=== PATIENT | female | born 1960 | race Caucasian/White ===

== ENCOUNTER 2017-04-16 15:40 | Inpatient (IN) | payer OTHER, MEDICAID ==
[2017-04-16] MEDS ORDERED: NS 1,000 ML IV ONE ×2 (16:25→16:52)
[2017-04-16 16:35] LABS: ANION GAP 26 mEq/L (8-16); CALCIUM 5.3 mg/dL (8.5-10.4); CARBON DIOXIDE 14 mEq/l (22-31); CHLORIDE 93 mEq/L (97-110); GLOMERULAR FILTRATION RATE 5; GLUCOSE 111 mg/dL (70-100); POTASSIUM 3.8 mEq/L (3.5-5.2); SODIUM 133 mEq/L (134-144)
[2017-04-16 16:43] LABS: % IMMATURE GRANULYOCYTES 0.7 % (0.0-1.1); ABSOLUTE IMMATURE GRANULOCYTES 0.07 10^3/uL (0.00-0.10); ADD DIFF? NO; ADD MORPH? NO; ADD SCAN? NO; ATYPICAL LYMPHOCYTE FLAG 0 (0-99); FRAGMENT RBC FLAG 0 (0-99); HEMATOCRIT 31.1 % (38.0-47.0); HEMOGLOBIN 10.2 g/dL (12.6-16.3); LEFT SHIFT FLG 10 (0-99); LIPEMIA HEMOLYSIS FLAG 80 (0-99); MEAN CELL HEMOGLOBIN 31.2 pg (27.9-34.1); MEAN CELL HEMOGLOBIN CONCENTR. 32.8 g/dL (32.4-36.7); MEAN CELL VOLUME 95.1 fL (81.5-99.8); MEAN PLATELET VOLUME 10.1 fL (8.7-11.7); PLATELET CLUMPS FLAG 0 (0-99); PLATELET COUNT 258 10^3/uL (150-400); RED BLOOD CELL COUNT 3.27 10^6/uL (4.18-5.33)
[2017-04-16 16:48] LABS: TROPONIN I < 0.012 ng/mL (0-0.034)
--- NOTE | 2017-04-16 16:48 | EDPHY ---
H & P Stated Complaint: First time seizure Source: Patient, Family, EMS Exam Limitations: Clinical condition - Personal History Current Tetanus Diphtheria and Acellular Pertussis (TDAP): Yes - Medical/Surgical History Hx Asthma: Yes Hx Chronic Respiratory Disease: No Hx Diabetes: Yes Hx Cardiac Disease: No Hx Renal Disease: Yes Hx Cirrhosis: No Hx Alcoholism: No Hx HIV/AIDS: No Hx Splenectomy or Spleen Trauma: No Other PMH: Medical: Crohns disease, Addisons, Diabetes type II, appy/choly/ asthma/bowel resection/l kidney problems, hc C2 fracture, sleep apnea, HTN, hypotension, asthma, back issues, kidney stones, appendectomy,Rt eye blindness, eye infections, - Social History Smoking Status: Current every day smoker Time Seen by Provider: 04/16/17 16:04 HPI/ROS: CHIEF COMPLAINT: syncope versus seizure HISTORY OF PRESENT ILLNESS: 56-year-old female with multiple medical problems presents emergency department by EMS after her daughter reports she had a seizure today at home. Patient reports she took her normal dose of pain medications which is 200 mg of morphine and 60 mg of OxyContin, 40 minutes later the patient reports she was feeling lightheaded and dizzy and felt like she was going to pass out. She went in lie down in bed. Her daughter then witnessed seizure-like activity for 1-2 minutes, reports she woke up confused. Patient presents the emergency department awake, alert and oriented, she is agitated. Patient reports feeling dehydrated and states she thinks she passed out due to dehydration. Patient reports she has been battling with dehydration all summer. She has Crohn's and has had chronic diarrhea and reports she has not been able to drink enough water. She denies chest pain. She reports feeling short of breath the last couple days. Patient denies any new medications, patient reports she stopped taking her daily prednisone 2 days ago. Her last dose was 30 mg. She denies any other medication changes. REVIEW OF SYSTEMS: A comprehensive 10 point review of systems is otherwise negative aside from elements mentioned in the history of present illness. (Lorelei Baker) Constitutional: Initial Vital Signs Temperature (C) 37.2 C 04/16/17 15:45 Heart Rate 75 04/16/17 15:45 Respiratory Rate 20 04/16/17 15:45 Blood Pressure 86/51 L 04/16/17 15:45 O2 Sat (%) 90 L 04/16/17 15:45 O2 Delivery Mode Room Air Allergies/Adverse Reactions: infliximab [From Remicade] Allergy (Severe, Verified 02/27/14 15:00) TROUBLE BREATHING/CHEST PAIN methotrexate [Methotrexate] Allergy (Unknown, Verified 02/27/14 15:00) azathioprine [From Imuran] Allergy (Verified 02/27/14 15:00) NAUSEA,DIARRHEA azathioprine sodium [From Imuran] Allergy (Verified 02/27/14 15:00) NAUSEA/DIARRHEA Home Medications: Medication Instructions Recorded Aspirin [Aspirin 325 mg (OTC)] 325 mg PO DAILY 05/07/12 Morphine Sulfate [Morphine Sulfate 200 mg PO BID 05/07/12 ER] Metoprolol Succinate Xr [Toprol Xl 50 mg PO DAILY 02/27/14 50 mg (*)] [place]-3 Ethyl Est-Lovaza [Lovaza 1 2 gm PO BID 02/27/14 gm (*)] Amitriptyline HCl 75 mg PO HS 12/05/16 Atorvastatin Calcium [Lipitor 20 20 mg PO DAILY 12/05/16 mg (*)] Budesonide/Formoterol 160/4.5 1 puffs IH BID 12/05/16 [Symbicort 160-4.5 Mcg Inh (*)] Diazepam [Valium 10 MG (*)] 10 mg PO TID PRN 12/05/16 Furosemide [Lasix 40 MG (*)] 40 mg PO DAILY 12/05/16 Levothyroxine [Synthroid 100 mcg 100 mcg PO DAILY06 12/05/16 (*)] Lisinopril [Zestril 10 mg (*)] 10 mg PO DAILY 12/05/16 Mirtazapine 30 mg PO HS 12/05/16 ALPRAZolam [Xanax 0.5 MG (*)] 0.5 mg PO BID PRN 04/16/17 Albuterol [Proventil Inhaler HFA 1 - 2 puffs IH PRN PRN 04/16/17 (*)] Budesonide [Entocort EC] 9 mg PO HS 04/16/17 DULoxetine [Cymbalta 60 MG (*)] 60 mg PO DAILY 04/16/17 Gabapentin [Neurontin] 600 mg PO TID 04/16/17 Pantoprazole Sodium [Protonix 40mg 40 mg PO DAILY 04/16/17 (*)] Promethazine HCl [Phenergan 25mg 25 mg PO Q6 PRN 04/16/17 (*)] Spironolactone [Aldactone 25 MG 25 mg PO HS 04/16/17 (*)] metFORMIN HCL [Glucophage 500 mg 1,000 mg PO HS 04/16/17 (*)] oxyCODONE IR [Oxycodone Ir (*)] 30 mg PO Q4 PRN 04/16/17 predniSONE [predniSONE TAPER] 1 each PO AD 04/16/17 Medical Decision Making ED Course/Re-evaluation: IV established by EMS. Patient with a blood pressure of 80s over 60s on arrival , she was reports feeling tired and has no other complaints. She denies dizziness, lightheadedness. Patient is awake, alert and oriented. 2nd IV established. CBC, chemistry panel, EKG, troponin and chest x-ray have been ordered. Chemistry panel shows a creatinine of 9.0 with a BUN of 50. Calcium is 5.3. 1 L of normal saline has been infused, 2nd L has been ordered. Patient is refusing a CT scan of her brain, she states she is sure it she did not have a seizure and just passed out from taking her pain medications after being so dehydrated. Daughter is at bedside trying to convince her to agree with plan. EKG shows sinus rhythm, rate 69, left axis deviation T-wave inversion in lead 3 , T-wave flattening in AVF. 1715-Pt had a witnessed seizure while in xray. Post ictal on return to room and combative. My supervising physician Dr. Beltran has seen and evaluated this patient. He agrees with plan for admission. Pt is given 1mg of iv ativan. Pt will go to SDU. I have spoken with Dr. Harris who accepts this admission. 1730-Patient come continues hypotensive with blood pressure over 102/68, heart rate is 82. 2nd L of fluid infusing. (Lorelei Baker) Critical Care Time: Critical care time spent by me, Dr. Beltran exclusive with this patient was 30 minutes, exclusive of the PA time exclusive of procedures. The organ system that was at risk was renal and neurologic and I gave IV fluids, consultation and admission to prevent worsening of the patient's condition (Moises Beltran) - Data Points Laboratory Results: Laboratory Results 04/16/17 15:45 04/16/17 15:45 Medications Given: Discontinued Medications Dextrose (Dextrose 50% Syringe) 25 gm IVP ONCE ONE Stop: 04/16/17 23:01 Last Admin: 04/16/17 23:24 Dose: 25 gm Gabapentin (Neurontin) 600 mg PO TID [facility] Stop: 10/13/17 23:29 Last Admin: 04/17/17 08:07 Dose: 600 mg Heparin Sodium (Porcine) (Heparin Sc Injection) 5,000 unit SC Q8 [facility] Stop: 10/13/17 21:59 Last Admin: 04/17/17 05:22 Dose: 5,000 unit Sodium Chloride (Ns) 1,000 mls @ 0 mls/hr IV ONCE ONE; Wide Open PRN Reason: Protocol Stop: 04/16/17 16:26 Last Admin: 04/16/17 16:35 Dose: 1,000 mls Sodium Chloride (Ns) 1,000 mls @ 0 mls/hr IV ONCE ONE PRN Reason: Wide Open Stop: 04/16/17 16:53 Last Admin: 04/16/17 16:30 Dose: 1,000 mls Sodium Chloride (Ns) 1,000 mls @ 125 mls/hr IV CONT [facility] Stop: 10/13/17 18:14 Last Admin: 04/17/17 07:23 Dose: 1,000 mls Calcium Gluconate 2 gm/ Sodium (Chloride) 70 mls @ 140 mls/hr IV ONCE ONE Stop: 04/16/17 19:35 Last Admin: 04/16/17 19:45 Dose: 70 mls Magnesium Sulfate (Magnesium Sulf 2 Gm (Premix)) 50 mls @ 50 mls/hr IV ONCE ONE Stop: 04/16/17 21:23 Last Admin: 04/16/17 20:25 Dose: 50 mls Calcium Gluconate 2 gm/ Sodium (Chloride) 70 mls @ 140 mls/hr IV ONCE ONE Stop: 04/16/17 22:27 Last Admin: 04/16/17 22:15 Dose: 70 mls Levofloxacin/Dextrose (Levaquin 750 Mg (Premix)) 150 mls @ 100 mls/hr IV ONCE ONE PRN Reason: Protocol Stop: 04/17/17 00:04 Last Admin: 04/17/17 00:17 Dose: 150 mls Metronidazole/Sodium Chloride (Flagyl 500 Mg (Premix)) 100 mls @ 100 mls/hr IV ONCE ONE PRN Reason: Protocol Stop: 04/16/17 23:35 Last Admin: 04/16/17 23:27 Dose: 100 mls Calcium Gluconate (Calcium Gluconate 1 Gm (Premix)) 50 mls @ 100 mls/hr IV ONCE ONE Stop: 04/16/17 23:29 Last Admin: 04/17/17 00:18 Dose: 50 mls Magnesium Sulfate/Dextrose (Magnesium Sulf 1 Gm (Premix)) 100 mls @ 100 mls/hr IV ONCE ONE Stop: 04/16/17 23:59 Last Admin: 04/17/17 00:18 Dose: 100 mls Sodium Bicarbonate 150 meq/ (Dextrose) 1,150 mls @ 150 mls/hr IV ONCE ONE Stop: 04/17/17 06:39 Last Admin: 04/16/17 23:21 Dose: 1,150 mls Magnesium Sulfate/Dextrose (Magnesium Sulf 1 Gm (Premix)) 100 mls @ 100 mls/hr IV ONCE ONE Stop: 04/16/17 23:45 Last Admin: 04/17/17 00:19 Dose: Not Given Calcium Gluconate 2 gm/ (Dextrose) 60 mls @ 120 mls/hr IV ONCE ONE Stop: 04/17/17 06:59 Last Admin: 04/17/17 07:23 Dose: 60 mls Magnesium Sulfate (Magnesium Sulf 2 Gm (Premix)) 50 mls @ 50 mls/hr IV ONCE ONE Stop: 04/17/17 07:29 Last Admin: 04/17/17 06:42 Dose: 50 mls Magnesium Sulfate/Dextrose (Magnesium Sulf 1 Gm (Premix)) 100 mls @ 100 mls/hr IV ONCE ONE Stop: 04/17/17 09:08 Last Admin: 04/17/17 08:40 Dose: 100 mls Lorazepam (Ativan Injection) 1 mg IVP ONCE ONE Stop: 04/16/17 17:21 Last Admin: 04/16/17 18:58 Dose: Not Given Methylprednisolone Sodium Succinate (Solu-Medrol) 20 mg IVP Q12 [facility] Stop: 10/13/17 20:59 Last Admin: 04/16/17 22:42 Dose: Not Given Morphine Sulfate (Ms Contin/Oramorph) 200 mg PO BID [facility] Stop: 04/26/17 22:59 Last Admin: 04/17/17 08:07 Dose: 200 mg Departure - Departure Disposition: [facility] Inpatient Acute Clinical Impression: BONG (acute kidney injury), Hypocalcemia, Seizure Condition: Critical
--- NOTE | 2017-04-16 16:53 | CPEKG ---
Heart Rate: 69 RR Interval: 870 P-R Interval: 196 QRSD Interval: 98 QT Interval: 448 QTC Interval: 480 P [place]: 45 QRS [place]: -21 T Wave [place]: -8 EKG Severity - ABNORMAL ECG - EKG Impression: SINUS RHYTHM EKG Impression: BORDERLINE LEFT AXIS DEVIATION EKG Impression: BORDERLINE T ABNORMALITIES, DIFFUSE LEADS Electronically Signed By: Fernandez Salamanca 18-Apr-2017 14:27:58
[2017-04-16] MEDS ORDERED: LORazepam 2 MG/ML INJ IVP ONE (17:20)
[2017-04-16] MEDS ORDERED: LORazepam 2 MG/ML INJ IVP PRN (18:09)
[2017-04-16] MEDS ORDERED: PROTOCOL CALCIUM 1 DOSE IV PRN (18:10)
--- NOTE | 2017-04-16 18:34 | GHP ---
[f rep st] HISTORY AND PHYSICAL DATE OF ADMISSION: 04/16/2017 CHIEF COMPLAINT: Suspected seizure. HISTORY OF PRESENT ILLNESS: This is a 56-year-old female with a history of Crohn disease, chronic narcotic use, hypertension, hypothyroidism, diabetes, and solitary kidney, who was brought to the Emergency Department by EMS after her daughter witnessed a seizure. The patient was diagnosed with Crohn's flare by her PCP on Sunday and has since been on prednisone. Her daughter works as an EMT at [employer]. Upon returning from work today, the patient states that she felt really dehydrated and has been having diarrhea and vomiting due to her Crohn disease. Over the past few days, her daughter has not been around much but does not think her mom has been eating or drinking very much. She has no previous history of seizure. She has not been complaining of any chest pain or shortness of breath. During the time of my exam, the patient is unarousable after she had a witnessed seizure while having a CT scan. PAST MEDICAL HISTORY: 1. Crohn disease. 2. Hiatal hernia. 3. Sleep apnea. 4. Hypertension. 5. Hypothyroidism. 6. Type 2 diabetes. 7. Asthma. 8. Sawyer disease. 9. Nonfunctioning left kidney. 10. Kidney stones. 11. Blind in the right eye. PAST SURGICAL HISTORY: 1. Cholecystectomy. 2. Bowel resection. 3. Colostomy with takedown. 4. D and C x3. 5. Multiple abdominal surgeries. HOME MEDICATIONS: Reviewed, refer to [facility] for details. ALLERGIES: Remicade, methotrexate, Imuran. SOCIAL HISTORY: She smokes. She denies any alcohol use. She lives with her daughter. FAMILY HISTORY: Unobtainable. REVIEW OF SYSTEMS: A comprehensive 10-point review of systems was attempted but was unobtainable since the patient was unresponsive during the time of my exam. PHYSICAL EXAMINATION: VITAL SIGNS: Blood pressure 88/58, pulse of 82, respiratory rate 26, O2 saturation 98% on 2 L, temperature afebrile. GENERAL: Ill appearing. HEAD: Normocephalic, atraumatic. EYES: PERRLA. Sclerae anicteric. MOUTH: Dry oral mucosa. NECK: Supple. No lymphadenopathy. CARDIOVASCULAR: S1, S2. No JVD. Trace lower extremity edema. PULMONARY: Diminished breath sounds bilateral bases. No wheezes, rales, or rhonchi. ABDOMEN: Soft, nontender, nondistended. No guarding or rebound tenderness. Normoactive bowel sounds. EXTREMITIES: No clubbing or cyanosis. NEURO: The patient does not follow commands. She is not moving any of her extremities. SKIN: There are multiple small scabs over her legs. DIAGNOSTICS: WBC is 9.7, hemoglobin 10.2, hematocrit 31.1, platelets 258. Sodium 133, potassium 3.8, chloride 93, CO2 of 14, BUN 51, creatinine 9, glucose 111, calcium 5.3. Troponin less than 0.012. EKG, which I visualized and personally interpreted, sinus rhythm, rate 69 beats per minute, no acute ischemic changes. ASSESSMENT AND PLAN: This is a 56-year-old female presenting after a seizure, found to have: 1. Acute kidney injury with history of nonfunctioning left kidney. Most likely prerenal; however, the diagnosis is broad at this point. Plan: The patient will be admitted to telemetry, where we will repeat a chemistry panel in 4 hours. Will order a renal ultrasound. Will also consult Nephrology. Will start IV hydration now and obtain urine electrolytes as well. Currently, the patient does not have indication for acute dialysis; however, this may change, which I did discuss with the patient's daughter. 2. Hypocalcemia, which possibly could be contributing to her seizure. Plan: Will replace calcium and monitor. Send PTH and ionized Ca++ 3. Crohn disease with reported active flare. Plan: Will continue steroids for now and consider GI consultation as indicated. Consider noncontrast CT of the abdomen and empiric antibiotics if fever develops. 4. History of chronic opioid use. Plan: Continue opioids as indicated. 5. History of Xanax and Valium use, which could also possibly be contributing to her seizure if she has not been taking these medications, which I was unable to obtain this history during the time of my exam. Plan: Will continue with benzodiazepines as needed for seizures. The patient is a full code status, per her daughter's request. /[id number]/MODL MTDD
[2017-04-16] MEDS ORDERED: CALCIUM GLUCONATE 2 GM in NS 50 ML IV ONE ×2 (19:06→21:58)
[2017-04-16] MEDS ORDERED: ALTEPLASE 2 MG VIAL IVP PRN (19:28)
--- NOTE | 2017-04-16 19:32 | SOAPPROG ---
SOAP Progress Note Assessment/Plan: Assessment: Please see dictation # [id number] BONG on CKD3- baseline Cr ~ 1.1 as of 10/10, essentially solitary kidney. Looks very dry/hypotensive now and getting aggressive IVF now. Getting renal u/s and guerrero as obstruction possible. Placing central line and pressors to improve hemodynamics. Checking CK, urine studies. Getting blood gas now- may need CRRT if not improving, refractory acidosis. Hypotension- chronic steroids use, recent severe GI losses from Crohns,and meds (narcotics/benzos). Checking blood Cx, lactate now. Giving IV Hydrocortisone. Central line and pressors if needed. Hypocalcemia- checking iCA, pTH and phos now. Giving Ca replacment now and recheck labs. Seizure- ?electrolyte related. For Head CT and neuro eval. Low bicarb- suspect met acidosis from BONG, diarrhea, metformin. Getting blood gas now and may need bicarb replacement in IVF vs CRRT. Crohns' with recent flare- recent prednisone burst DM2- on metformin- holding I discussed with DISABILITY CASE MANAGER and Dr. Harris and pt's daughter Cherelle Joseph MD [facility] [phone] pager [phone] pager/24 hr line Objective: Vital Signs Temp Pulse Resp BP Pulse Ox 37.2 C 82 26 H 88/58 L 98 04/16/17 15:45 04/16/17 17:29 04/16/17 17:23 04/16/17 17:29 04/16/17 17:29 Laboratory Results 04/16/17 18:45 04/16/17 18:45 04/15/17 04/16/17 04/17/17 05:59 05:59 05:59 Intake Total 1500 Balance 1500 Physical Exam - Physical Exam General Appearance: obtunded ICD10 Worksheet Patient Problems: Problems Problem Status Onset BONG (acute kidney injury) Acute - ICD10 Problem Qualifiers (1) BONG (acute kidney injury)
[2017-04-16 19:48] LABS: ALANINE AMINOTRANSFERASE 27 IU/L (9-52); ALBUMIN 2.3 g/dL (3.5-5.0); ALKALINE PHOSPHATASE 58 IU/L (38-126); ANION GAP 15 mEq/L (8-16); ASPARTATE AMINOTRANSFERASE 18 IU/L (14-46); BILIRUBIN,TOTAL 0.6 mg/dL (0.1-1.4); C-REACTIVE PROTEIN 20.6 mg/L (<10.0); CALCIUM 4.1 mg/dL (8.5-10.4); CARBON DIOXIDE 17 mEq/l (22-31); CHLORIDE 101 mEq/L (97-110); GLOMERULAR FILTRATION RATE 6; GLUCOSE 64 mg/dL (70-100); POTASSIUM 3.4 mEq/L (3.5-5.2); SODIUM 133 mEq/L (134-144)
[2017-04-16 19:56] LABS: PTH INTACT NO MINERALS 250.5 pg/ml (10.8-79.4)
[2017-04-16 20:09] LABS: PTH INTACT NO MINERALS 155.2 pg/ml (10.8-79.4)
[2017-04-16 20:11] LABS: CREATININE 7.6 mg/dL (0.6-1.0)
[2017-04-16 20:13] LABS: MAGNESIUM 0.6 mg/dL (1.6-2.3)
[2017-04-16] MEDS ORDERED: MAGNESIUM SULF 2 GM/WATER 50 ML IV ONE (20:24)
[2017-04-16] MEDS ORDERED: ALBUTEROL 60 PUFFS/8 GM MDI IH PRN (20:25)
[2017-04-16] MEDS ORDERED: ALPRAZolam 0.5 MG TAB PO PRN (20:25)
[2017-04-16 20:31] LABS: CK-MB INTERPRETATION NEGATIVE (NEGATIVE)
[2017-04-16] MEDS ORDERED: MAGNESIUM SULF 2 GM/WATER 50 ML BAG IV ONE (20:32)
[2017-04-16] MEDS ORDERED: ALBUTEROL 200 PUFFS/18 GM MDI IH PRN (20:34)
[2017-04-16 20:54] LABS: CREATINE KINASE-MB FRACTION 9.24 ng/mL (0-3.19)
[2017-04-16] MEDS ORDERED: methylPREDNISolone SOD SUCC 40 MG/ML VIAL IVP SCH (21:00)
[2017-04-16] MEDS: NS 1,000 ML IV SCH (21:27)
[2017-04-16] MEDS: NOREPINEPHRINE/NS 500 ML IV SCH (21:30)
--- NOTE | 2017-04-16 21:30 | GCON ---
[f rep st] CONSULTATION NEPHROLOGY CONSULTATION DATE OF CONSULTATION: 04/16/2017 REFERRING PHYSICIAN: Leandro Harris DO REASON FOR CONSULTATION: Acute kidney injury. HISTORY OF PRESENT ILLNESS: The patient is a 56-year-old woman, with a history of diabetes, Crohn d isease, hypertension, obstructive sleep apnea, and chronic pain syndrome, who was brought in by para medics after she had a witnessed seizure by her daughter at home. The patient has had increasing sy mptoms of her Crohn's lately with increasing diarrhea, nausea and poor oral intake. She saw [facility] on Sunday and was started on a prednisone burst. The patient's daughter gave mo st of the history, as the patient is too confused to answer any questions. Her daughter works as an EMT. She says that the patient was complaining of feeling really dehydrated today and dizzy and th en had a grand mal seizure in front of her. She had a subsequent seizure here on arrival to the [facility] and thus her head CT was not able to be completed as the seizure occurred during this period. Her daughter thinks that she has not been eating and drinking very much over the last several days due to the increased diarrhea. She does not have any known seizure disorder. She does have a histo ry of essentially a solitary kidney as she had a severe obstruction on the left side from a prior ki dney stone that unfortunately developed a severe ureteral injury at the time of surgical interventio n. The patient's daughter thinks that her left kidney is essentially nonfunctioning at this point. Reviewing labs in the system, it appears that her baseline creatinine is around 1.1, based on labs i n September. Her creatinine has ranged anywhere from 0.9 to 1.2 over the past several years. Of note , the patient also was noted to have a low calcium at 5.3 and ionized calcium is pending. She is re ceiving some IV calcium gluconate currently. She is hypotensive with blood pressures in the 70s ove r 30s. Currently she is on her third liter of IV normal saline. The patient's daughter tells me th at she took her narcotics doses before paramedics arrived and has been somnolent since then, even be fore she was given the low-dose of Ativan in the emergency room. Neurology is due to see her. She has not had any fevers. She has been protecting her airway and is saturating in the 90s on room air . She has not made any urine since arrival and a Winslow catheter and renal ultrasound are pending. REVIEW OF SYSTEMS: Unable to obtain from the patient as she is too somnolent. Discussing with her daughter: GENERAL: She has had no fevers. She has had generalized malaise, poor oral intake, and some weakness. HEENT: Denies any sore throat. PULMONARY: She has not been complaining of any ginger rtness of breath. She does wear oxygen at night for her sleep apnea, but does not wear it during day. CARDIAC: No chest pain or lower extremity edema. GASTROINTESTINAL: She has had increased diarrhea, nonbloody. Some nausea and some chronic abdominal pain. No vomiting. GENITOURINARY: No pura that her urine has been a little bit darker, but no hematuria or flank pain. SKIN: She has chr onic excoriations on her legs and her daughter reports she is itching related to whenever she is on prednisone. ENDOCRINE: She does have a history of diabetes. No recent low blood sugars. HEMATOLO GIC: No witnessed bleeding. NEUROLOGICAL: She did have a seizure at home and again on arrival to the emergency room. PAST MEDICAL HISTORY: 1. Crohn disease. She is currently on a prednisone taper. She has not tolerated several medicatio ns in the past, including Remicade and Humira. 2. Type 2 diabetes on metformin. 3. Essentially solitary kidney as she had an injury to her left kidney after a severe kidney stone. 4. Mild chronic kidney disease with a baseline serum creatinine approximately 1.1. 5. Hypertension. 6. Obstructive sleep apnea, not using CPAP. She does use nocturnal oxygen. 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 8. History of remote left nephrolithiasis, unknown stone type. 9. Right eye blindness. 10. Asthma. 11. Status post cholecystectomy. 12. Status post exploratory laparotomy with bowel resection, multiple times. She did have a colost richard with takedown, thought related to her Crohn disease. 13. Status post D and C. SOCIAL HISTORY: She has been living with her daughter in good spirits lately, per her daughter, reina ng otherwise well other than the increased diarrhea. She does smoke approximately half a pack a day . No alcohol or drugs. FAMILY HISTORY: Her daughter reports that the patient's parents may have had some mild chronic kidn ey disease, but nobody was on dialysis that she is aware of. PHYSICAL EXAMINATION: VITAL SIGNS: Her blood pressure was 73/40. Heart rate 82, saturating 98% on 2 L of oxygen. GENERAL: She is somnolent, not answering questions. Reacts to painful stimuli and sternal rub. Protecting her airway. HEENT: Her mucous membranes appear dry. NECK: Supple. ROSEANN ST: Lungs are clear to auscultation but poor effort, given her mental state. CARDIOVASCULAR: Regu lar rate and rhythm. No rub. ABDOMEN: Soft. Normal bowel sounds. She has multiple abdominal sca rs that are well healed. EXTREMITIES: No edema. She has multiple excoriations that appear consist ent with chronic scratching. No obvious cellulitis. NEUROLOGICAL: Again, very somnolent. Not ans wering questions or following commands. Does react to painful stimuli. LABORATORY DATA: Include sodium 133, potassium 3.8, chloride 93, bicarbonate 14, BUN 51, creatinine 9.0, glucose 111, calcium 5.3. Troponin less than 0.12. White blood cell count 9.1, hemoglobin 10 .2, hematocrit 31.2, platelets 258. ASSESSMENT AND PLAN: The patient is a 56-year-old woman with a history of Crohn's, diabetes, hypert ension, essentially solitary kidney, who now presents with hypotension, witnessed seizure, acute kid bety injury, hypocalcemia, and metabolic acidosis. 1. Acute kidney injury on top of chronic kidney disease. Her baseline serum creatinine appears to be approximately 1.1, which gives her chronic kidney disease stage 3. This in the setting of a mare tary functioning kidney from prior injury as well as long-standing diabetes and hypertension. She a ppears extremely dehydrated on exam and I agree with aggressive IV fluids. I am also getting a val l ultrasound to exclude obstruction, given the essential solitary kidney. We are also placing a christian tral line and starting her on pressors to improve her hemodynamics. I have labs pending to see what her blood gas shows. At this point, there are not any acute indications for dialysis, but I did ex plain to her daughter that she may require it very soon if we do not see any improvement with these measures, especially if her acidosis proves refractory. We are also placing a Winslow catheter and if we can get some urine, we will send some essential studies. I think the most important thing candis sandhu is to hydrate, improve her blood pressure, and exclude obstruction with an ultrasound. 2. Hypotension. It is unclear the etiology. She does not appear to have a fever or elevated white count. 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 She is getting aggressive IV fluids. We are placing a central line and starting pressors. We will send blood cultures. It may also be related to medications that yumiko torres took earlier, including the narcotics and the Ativan. 3. Seizure. This may be electrolyte related with the severe hypocalcemia. We have an ionized calc ium pending. She has a head CT pending. Neurology is due to see her. She has not been loaded with Dilantin and I will defer to Neurology if this is indicated. 4. Severe hypocalcemia. The etiology is not clear at this time. We have an ionized calcium pendin g. I am also checking a phosphorus and a CK and a PTH level. We are replacing with IV calcium now. Monitoring her on telemetry. We will replete as necessary. 5. Low serum bicarbonate. I suspect this is likely metabolic acidosis in the setting of acute kidn ey injury, chronic diarrhea that has been worse lately as well as metformin use. We may need to swi tch her IV fluids over to bicarbonate versus initiate dialysis if this proves refractory. Thank you very much for this consultation. I have discussed my recommendations with the ICU team. We will continue to follow closely. I have repeat labs pending. I will also be in touch with bobbi bland once these are back. Please call me with any questions. /[id number]/MODL
[2017-04-16 21:31] LABS: IONIZED CALCIUM 0.68 MMOL/L (1.12-1.30)
[2017-04-16 21:32] LABS: PCO2 VENOUS 48 mmHg (40-44); PO2 VENOUS 78 mmHg (35-40); TCO2 VENOUS 19 mEq/L (23-27); VEN MEASURED OXYGEN SATURATION 90 % (65-75)
[2017-04-16 21:40] LABS: ANION GAP 15 mEq/L (8-16); CARBON DIOXIDE 15 mEq/l (22-31); CHLORIDE 103 mEq/L (97-110); CREATININE 7.2 mg/dL (0.6-1.0); GLOMERULAR FILTRATION RATE 6; GLUCOSE 66 mg/dL (70-100); MAGNESIUM 1.7 mg/dL (1.6-2.3); POTASSIUM 3.6 mEq/L (3.5-5.2); SODIUM 133 mEq/L (134-144)
[2017-04-16 21:41] LABS: IONIZED CALCIUM 0.77 MMOL/L (1.12-1.30)
[2017-04-16] MEDS: HEPARIN 5,000 UNIT/0.5 ML SYR SC SCH (21:43)
[2017-04-16 21:44] LABS: CALCIUM 4.9 mg/dL (8.5-10.4)
[2017-04-16] MEDS: HYDROCORTISONE 100 MG/2 ML VIAL IVP SCH (21:44)
[2017-04-16] MEDS ORDERED: PROTOCOL MAGNESIUM 1 DOSE IV PRN (21:59)
[2017-04-16 22:01] LABS: ALBUMIN 2.2 g/dL (3.5-5.0); ANION GAP 11 mEq/L (8-16); CARBON DIOXIDE 16 mEq/l (22-31); CHLORIDE 103 mEq/L (97-110); CREATININE 7.2 mg/dL (0.6-1.0); GLOMERULAR FILTRATION RATE 6; GLUCOSE 66 mg/dL (70-100); POTASSIUM 3.6 mEq/L (3.5-5.2); SODIUM 130 mEq/L (134-144)
--- NOTE | 2017-04-16 22:34 | HOSPPROG ---
Hospitalist Progress Note Assessment/Plan: critical care note since being transferred to the ICU the patients condition has continued to worsen with hypotension despite 4L of IV NS Picc line ordered Started on pressors A/shock suspect hypovolemia without evidence for infection P/send procalcitonin will defer abx for now if bp improving blood cultures 45 minutes of critical care time spent with patient Objective: Vital Signs Temp Pulse Resp BP Pulse Ox 37.2 C 82 26 H 88/58 L 98 04/16/17 15:45 04/16/17 17:29 04/16/17 17:23 04/16/17 17:29 04/16/17 17:29 Laboratory Results 04/16/17 18:45 04/16/17 21:15 04/15/17 04/16/17 04/17/17 05:59 05:59 05:59 Intake Total 1500 Balance 1500 ICD10 Worksheet Patient Problems: Problems Problem Status Onset BONG (acute kidney injury) Acute
[2017-04-16] MEDS ORDERED: MAGNESIUM SULF 1 GM/DEXTROSE 100 ML BAG IV ONE (22:44)
[2017-04-16] MEDS ORDERED: MAGNESIUM SULF 1 GM/DEXTROSE 100 ML IV ONE ×2 (22:46→23:00)
[2017-04-16] MEDS ORDERED: D50W 25 GM/50 ML SYR IVP ONE (23:00)
[2017-04-16] MEDS ORDERED: CALCIUM GLUCONATE 50 ML IV ONE (23:00)
[2017-04-16] MEDS ORDERED: PROMETHAZINE HCL 25 MG TAB PO PRN (23:00)
[2017-04-16] MEDS ORDERED: SODIUM BICARBONATE 150 MEQ in D5W 1,000 ML IV ONE (23:00)
[2017-04-16] MEDS: BUDESONIDE/FORMOTEROL 160/4.5 60 PUFFS/MDI IH SCH (23:00)
[2017-04-16] MEDS ORDERED: oxyCODONE IR 15 MG TAB PO PRN (23:06)
[2017-04-16] MEDS: BUDESONIDE 3 MG EC CAP PO SCH (23:12)
[2017-04-16] MEDS: GABAPENTIN 300 MG CAP PO SCH (23:43)
[2017-04-16] MEDS: MIRTAZAPINE 30 MG TAB PO SCH (23:43)
[2017-04-16] MEDS: LEVOTHYROXINE 100 MCG TAB PO SCH (23:44)
[2017-04-16] MEDS: PANTOPRAZOLE SODIUM 40 MG TAB PO SCH (23:44)
[2017-04-16] MEDS: DULoxetine 60 MG CAP PO SCH (23:44)
[2017-04-16] MEDS: AMITRIPTYLINE HCL 25 MG TAB PO SCH (23:44)
[2017-04-16] MEDS: morphINE SR 100 MG TAB PO SCH (23:44)
[2017-04-16] MEDS: ATORVASTATIN CALCIUM 20 MG TAB PO SCH (23:44)
[2017-04-17 02:20] LABS: COLOR YELLOW; LEUKOCYTE ESTERASE,URINE TRACE (NEGATIVE); NITRITE,URINE NEGATIVE (NEGATIVE)
[2017-04-17 02:26] LABS: MUCUS TRACE /lpf (NONE-1+)
[2017-04-17] MEDS: HYDROCORTISONE 100 MG/2 ML VIAL IVP SCH ×3 (05:22→21:53)
[2017-04-17] MEDS: HEPARIN 5,000 UNIT/0.5 ML SYR SC SCH ×2 (05:22→13:44)
[2017-04-17 05:28] LABS: PCO2 VENOUS 46 mmHg (40-44); PH VENOUS BLOOD 7.28 (7.31-7.42); PO2 VENOUS 69 mmHg (35-40); TCO2 VENOUS 22 mEq/L (23-27); VEN MEASURED OXYGEN SATURATION 91 % (65-75)
[2017-04-17 05:29] LABS: IONIZED CALCIUM 0.84 MMOL/L (1.12-1.30)
[2017-04-17 05:34] LABS: % IMMATURE GRANULYOCYTES 0.5 % (0.0-1.1); ABSOLUTE IMMATURE GRANULOCYTES 0.03 10^3/uL (0.00-0.10); ADD DIFF? NO; ADD MORPH? NO; ADD SCAN? NO; ATYPICAL LYMPHOCYTE FLAG 0 (0-99); FRAGMENT RBC FLAG 0 (0-99); HEMATOCRIT 25.9 % (38.0-47.0); HEMOGLOBIN 8.7 g/dL (12.6-16.3); LEFT SHIFT FLG 20 (0-99); LIPEMIA HEMOLYSIS FLAG 80 (0-99); MEAN CELL HEMOGLOBIN 31.1 pg (27.9-34.1); MEAN CELL HEMOGLOBIN CONCENTR. 33.6 g/dL (32.4-36.7); MEAN CELL VOLUME 92.5 fL (81.5-99.8); MEAN PLATELET VOLUME 9.9 fL (8.7-11.7); PLATELET CLUMPS FLAG 30 (0-99); PLATELET COUNT 186 10^3/uL (150-400); RED CELL DISTRIBUTION WIDTH 15.4 % (11.5-15.2)
[2017-04-17 05:55] LABS: ALBUMIN 2.4 g/dL (3.5-5.0); ANION GAP 11 mEq/L (8-16); CARBON DIOXIDE 21 mEq/l (22-31); CHLORIDE 100 mEq/L (97-110); CREATININE 5.6 mg/dL (0.6-1.0); GLOMERULAR FILTRATION RATE 8; GLUCOSE 227 mg/dL (70-100); MAGNESIUM 1.5 mg/dL (1.6-2.3); POTASSIUM 3.6 mEq/L (3.5-5.2); SODIUM 132 mEq/L (134-144)
[2017-04-17] MEDS ORDERED: LEVOTHYROXINE 100 MCG TAB PO SCH (06:00)
[2017-04-17] MEDS ORDERED: MAGNESIUM SULF 2 GM/WATER 50 ML IV ONE (06:30)
[2017-04-17] MEDS ORDERED: CALCIUM GLUCONATE 2 GM in D5W 50 ML IV ONE (06:30)
[2017-04-17] MEDS: NS 1,000 ML IV SCH (07:23)
[2017-04-17] MEDS: DULoxetine 60 MG CAP PO SCH (08:07)
[2017-04-17] MEDS: ATORVASTATIN CALCIUM 20 MG TAB PO SCH (08:07)
[2017-04-17] MEDS: PANTOPRAZOLE SODIUM 40 MG TAB PO SCH (08:07)
[2017-04-17] MEDS: morphINE SR 100 MG TAB PO SCH ×2 (08:07→19:44)
[2017-04-17] MEDS: GABAPENTIN 300 MG CAP PO SCH ×2 (08:07→19:43)
[2017-04-17] MEDS ORDERED: MAGNESIUM SULF 1 GM/DEXTROSE 100 ML IV ONE (08:09)
[2017-04-17] MEDS ORDERED: NON-FORMULARY NEW DRUG (Gabapentin [Neurontin] 600 MG) PO SCH (09:00)
[2017-04-17] MEDS ORDERED: GABAPENTIN 300 MG CAP PO SCH (09:00)
[2017-04-17] MEDS: BUDESONIDE/FORMOTEROL 160/4.5 60 PUFFS/MDI IH SCH ×2 (10:51→20:56)
--- NOTE | 2017-04-17 11:06 | PDCONSULT ---
Technical Sales Engineer Note: HOSPITAL NEUROLOGY CONSULT REQUESTING: Leandro Harris DO REASON: seizure HPI: This is a 56 year old right-handed woman with a history of Crohn disease, CKD, solitary functioning kidney (left one damaged from severe nephrolithiasis), DM2 , HTN, KASSANDRA, chronic benzodiazepine use, chronic narcotic use, iatrogenic Sawyer disease, right eye blindness who presented to our ED yesterday with a seizure. Patient was at her daughter's house. She was feeling lightheaded and overall not feeling well. She felt dehydrated and was having increasing diarrhea and nausea. She went outside to smoke a cigarette. She was then witnessed to have a generalized convulsion. She was post-ictally confused. She was brought to our ED. IN the ED, a CT head was going to be performed and she had another brief generalized convulsion with post-ictal confusion. She was given lorazepam. Screening labs indicated severe BONG with a Cr of 9 (her baseline Cr is reported as 1.1). She was also found to be severely hypocalcemic (Ca 5.3) and hypomagnesemic (Mg 0.6). She was started on IVF with electrolyte repletion. She require pressors due to hypotension as well. Overnight she has returned to baseline. No prior history of seizures. She denies missing doses of narcotics. She states she take alprazolam once daily to once every other day and has never had problems with withdrawal. ROS: As per the HPI, otherwise a complete 12 point ROS was performed and is negative ALLERGIES AND MEDS: As recorded in the EMR - reviewed and reconciled PFSH: As per the intake H&P by Dr. Harris from yesterday EXAM: VS reviewed in EMR GEN: WDWN sitting in NAD HEENT: NCAT, sclera anicteric, conjunctiva not injected, MMM, oropharynx clear, no tongue laceration, no scalp tenderness NECK: supple, nontender, no meningismus CV: RRR s1 s2 wo m/r/c/g. Carotid pulses 2+ wo bruit NEURO: MS: awake, alert, oriented to all spheres. Speech nondysarthric. No language disturbance. Follows commands. Attends to both sides. Recent/remote memory grossly intact. Mood euthymic. Good fund of knowledge. CN: pupils 4mm round - OS reactive, OD sluggish. Fundi with sharp discs. VFF OS, hand wave OD. Primary gaze centered. Full ocular motility. Facial sensation preserved. Face symmetric. Hearing grossly intact to finger rub. Palatoglossal movements intact. Shoulder shrug and head turn strong. MOTOR: normal bulk/tone. Full power throughout. Asterixis with wrists extended and feet dorsiflexed. SENSORY: intact LT/PP throughout and symmetric. No extinction. COORD: no ataxia FN/HS. Hafsa preserved. REFLEX: plantars down. No clonus. DTRS 2/4. GAIT: deferred to PT safety eval DATA REVIEW: Labs reviewed in EMR PERSONALLY INTERPRETED RESULTS AND DATA: None IMPRESSION AND RECOMMENDATIONS: // SEIZURE // BONG // HYPOCALCEMIA // HYPOMAGNESEMIA // HYPOTENSION // POLYPHARMACY Patient with 2 seizures in the setting of multiple severe metabolic disturbances. Her exam is notable mainly for asterixis, which indicates systemic metabolic disturbance resulting in negative myoclonus. I suspect her seizures were provoked in the setting of severe BONG/dehydration, severe hypomagnesemia and severe hypocalcemia. I would not start antiseizure drug at this time. Cont with seizure precautions. Use lorazepam 1-2mg PRN seizures lasting longer than 3 mins. Metabolic investigation and optimization per primary team and consulting services (nephrology). She is going to continue on her home narcotics and benzos. She should have her polypharmacy addressed as an outpatient, as she is on multiple potent psychoactive medications which can lower seizure threshold, or result in withdrawal seizure (I don't think this is currently culprit, but it is an opportunity to streamline her medications and provide a safer regimen). Will sign off. Please recall PRN.
--- NOTE | 2017-04-17 11:48 | HOSPPROG ---
Hospitalist Progress Note Assessment/Plan: New onset seizure likely secondary to electrolyte disturbances including hypocalcemia and hypomagnesemia - Neurology consult appreciated, no anti- epileptics recommended. -prn ativan for recurrent seizure -replace electrolytes, follow -head CT pending Hypocalcemia in setting of acute renal failure - likely cause of seizure. Improving with replacement -check Vit D -cont calc, mag replacement BONG on CKD - Secondary to volume depletion in setting of crohn's flare, GI losses and poor oral intake. Baseline Cr 1.1, in setting of solitary functioning kidney. Has not required dialysis, Cr trending down with hydration. -cont IVF's Hypotension - Due to hypovolemia as above -cont IVF's -wean pressors Crohn's flare - on IV hydrocortisone now, was on predisone taper as outpt, down to 40 mg daily. -cont IV hydrocortisone for now -likely change to oral prednisone tomorrow Addisons due to chronic steroid use - on stress dose steroids as above Chronic opiate and bzd dependence - high risk doses noted. -reduce morphine dose given poor renal function and likely accumulating, increasing her risk of respiratory suppression Peripheral neuropathy - reduce gabapentin dose due to poor renal clearance / BONG Full code Dispo - cont inpt/ICU Subjective: Pt feels better. She is more awake, but eyes close and she drifts off easily. Denies abdominal pain or diarrhea. No fevers. UOP improving. Objective: Vital Signs Temp Pulse Resp BP Pulse Ox 36.8 C 83 10 L 122/82 H 97 04/17/17 08:00 04/17/17 11:12 04/17/17 11:12 04/17/17 11:12 04/17/17 11:12 Laboratory Results 04/17/17 05:15 04/17/17 05:15 04/16/17 04/17/17 04/18/17 05:59 05:59 05:59 Intake Total 4276 151 Output Total 1340 575 Balance 2936 -424 - Physical Exam Constitutional: no apparent distress Eyes: PERRL Ears, Nose, Mouth, Throat: moist mucous membranes Cardiovascular: regular rate and rhythym Respiratory: no respiratory distress, clear to auscultation Gastrointestinal: normoactive bowel sounds, soft, non-tender abdomen Skin: warm Musculoskeletal: full muscle strength Neurologic: AAOx3 ICD10 Worksheet Patient Problems: Problems Problem Status Onset BONG (acute kidney injury) Acute Hypocalcemia Acute Seizure Acute
[2017-04-17] MEDS ORDERED: NS 1,000 ML IV SCH (14:30)
[2017-04-17] MEDS: NOREPINEPHRINE/NS 500 ML IV SCH (15:00)
--- NOTE | 2017-04-17 15:12 | SOAPPROG ---
SOAP Progress Note Assessment/Plan: Assessment: 1. arf: prerenal/atn from vol depletion + hypotension. Resolving rapidly with good uo. Cont ivf for now until off pressors. 2. HypoCa: likely due to arf+hyperphos, pth is appropriately elevated. HypoMag likely contributing, check vit D levels to see if these could also be contributing. Improved, cont to replace prn but would expect to improve with resolution of arf. 3. Hypotension: improved with volume but remains on pressors. Cont ivf as above. 4. Met acidosis: essentially resolved. 5. HypoMag: improving s/p supplementation, can contribute hypoCa via decreased pth sensitivity. Plan: 04/17/17 15:08 Subjective: Remains on low-dose pressors. Ms improved, has been up to BR per daughter. Objective: Vital Signs Temp Pulse Resp BP Pulse Ox 37.0 C 81 15 115/73 94 04/17/17 12:15 04/17/17 14:00 04/17/17 14:00 04/17/17 14:00 04/17/17 14:00 Laboratory Results 04/17/17 05:15 04/17/17 05:15 04/16/17 04/17/17 04/18/17 05:59 05:59 05:59 Intake Total 4276 151 Output Total 1340 575 Balance 2936 -424 Physical Exam - Physical Exam General Appearance: other (chronically-ill appearing) Respiratory: lungs clear (anteriorly) Cardiac/Chest: regular rate, rhythm Abdomen: soft Extremities: pedal edema (none) ICD10 Worksheet Patient Problems: Problems Problem Status Onset BONG (acute kidney injury) Acute
[2017-04-17 16:11] LABS: ANION GAP 9 mEq/L (8-16); CARBON DIOXIDE 25 mEq/l (22-31); CHLORIDE 101 mEq/L (97-110); CREATININE 3.8 mg/dL (0.6-1.0); GLOMERULAR FILTRATION RATE 12; GLUCOSE 305 mg/dL (70-100); POTASSIUM 3.5 mEq/L (3.5-5.2); SODIUM 135 mEq/L (134-144)
[2017-04-17] MEDS ORDERED: D50W 25 GM/50 ML SYR IVP PRN (16:38)
[2017-04-17] MEDS: INSULIN LISPRO 100 UNIT/ML SC SCH ×2 (17:14→21:53)
[2017-04-17] MEDS: AMITRIPTYLINE HCL 25 MG TAB PO SCH (19:43)
[2017-04-17] MEDS: BUDESONIDE 3 MG EC CAP PO SCH (19:43)
[2017-04-17] MEDS: LEVOTHYROXINE 100 MCG TAB PO SCH (19:44)
[2017-04-17] MEDS: MIRTAZAPINE 30 MG TAB PO SCH (19:44)
[2017-04-17] MEDS ORDERED: MIRTAZAPINE 30 MG TAB PO SCH (21:00)
[2017-04-17] MEDS ORDERED: AMITRIPTYLINE HCL 75 MG PO SCH (21:00)
[2017-04-17] MEDS ORDERED: AMITRIPTYLINE HCL 25 MG TAB PO SCH (21:00)
--- NOTE | 2017-04-17 21:14 | GCON ---
[f rep st] CONSULTATION DATE OF CONSULTATION: 04/17/2017 REASON FOR CONSULTATION: Seizures. HISTORY: The patient is a pleasant 56-year-old with multiple medical problems, as outlined below. She was brought to the emergency room following a witnessed seizure by her daughter. She had anothe r seizure in the emergency room. CT head was not accomplished there. She was dehydrated with multi ple electrolyte abnormalities. This was felt to be the etiology for her seizures. She has been see n by Neurology. No anti-seizure medications are felt to be indicated. She has not had a subsequent seizure. She does have a solitary kidney. Her baseline creatinine is 1.1. She came in with a sig nificantly elevated creatinine, again probably secondary to volume depletion. Creatinine was 7.6 on admission with a BUN of 48. She has been seen by Renal, and they recommended judicious rehydration and appropriate electrolyte replacement. Dialysis was not recommended initially. They will contin ue to follow the patient. PAST MEDICAL HISTORY: Remarkable for Crohn disease, hypertension, type 2 diabetes, Sawyer disease, asthma, a nonfunctioning left kidney and kidney stones, right eye blindness, sleep apnea, and chron ic pain and narcotic use. PAST SURGICAL HISTORY: Cholecystectomy, partial bowel resection with temporary colostomy. and lapar otomies. HOME MEDICATIONS: Extensive and included p.r.n. Xanax, Synthroid, p.r.n. Valium, Aldactone, Symbico rt b.i.d., prednisone (which was being tapered), pantoprazole, p.r.n. Phenergan, OxyIR, extended-rel ease morphine, metoprolol, metformin, lisinopril, Neurontin, albuterol, furosemide, Cymbalta, Entoco rt court cream, Lipitor, aspirin, and amitriptyline. DRUG ALLERGIES: Methotrexate, azathioprine, and infliximab. SOCIAL HISTORY: The patient lives in her own home. She has a supportive family. There is a histor y of ongoing tobacco abuse. Significant alcohol is denied. FAMILY HISTORY: Noncontributory. REVIEW OF SYSTEMS: She denies heart disease and congestive heart failure. There is a history of fl uid retention. PHYSICAL EXAMINATION: GENERAL: A pleasant woman who is lying comfortably in bed. Oxygen is in alistair ce at 2 L. She is awake, alert, and communicative. VITAL SIGNS: Blood pressure is approximately 1 30/70, heart rate 70 with sinus rhythm on the monitor. On 2 L, saturations are 95%. Respiratory ra te is 14. CVP is 7. HEENT: Unremarkable for lymphadenopathy or thyromegaly. No jugular venous di stention. Mucous membranes are moist. CHEST: Clear bilaterally. Breath sounds are diminished at the bases. HEART: Regular in rate and rhythm. A soft systolic murmur is present. No gallops. AB DOMEN: Overweight, soft, and nontender. Bowel sounds are present. EXTREMITIES: There is trace to plus edema. NEUROLOGIC: Intact. DATABASE: CT scan of the head is now available. No acute abnormalities were identified. LABORATORY: Sodium is 133, CO2 15. BUN is 45 with a creatinine of 7.2. Calcium is 4.9, with an io nized calcium of 0.77. Magnesium is 1.7. AST and ALT are within normal limits. Urinalysis on admi ssion is unremarkable. ASSESSMENT: 1. Seizures. The patient apparently had a generalized seizure secondary to profound metabolic abno rmalities associated with dehydration. Calcium was especially low. She was on replacement protocol s initially. She has had no further seizure activity, and mental status appears to be returning tow ayush normal. No anti-seizure medications are felt to be indicated. Electrolytes are being followed closely and replaced. 2. Volume depletion with electrolyte abnormalities. The exact etiology for the severity of these d erangements is unclear. Closer followup as an outpatient will be needed. 3. Acute renal insufficiency. She does have only 1 functioning kidney. BUN and creatinine are sig nificantly elevated but are coming down. She is making urine. She has been seen by Renal. There a re no indications currently for dialysis. 4. Hypotension: Resolving. Sepsis seems unlikely. Volume depletion is the most likely. Hypotens ion has resolved with appropriate fluid replacement. 5. History of multiple medical problems and medications as outlined above. PLAN AND RECOMMENDATIONS: The patient will be kept in the intensive care unit. Laboratory and elec trolytes will be followed closely. They will next be obtained in the a.m. She will be kept in the intensive care unit. Entocort will be continued. Her usual inhaled medications will be continued. Hydrocortisone is being given for stress steroid coverage in the event that steroid withdrawal may be associated with her hypotension. Her usual medications will otherwise be continued. Appropriate pain control will be maintained. All the above was discussed with the patient. TIME SPENT: 40 minutes of critical care time was spent directly with the patient. /[id number]/MODL
[2017-04-17 21:58] LABS: PH VENOUS BLOOD 7.18 (7.31-7.42)
[2017-04-18] MEDS: HEPARIN 5,000 UNIT/0.5 ML SYR SC SCH ×3 (00:16→23:42)
[2017-04-18] MEDS: HYDROCORTISONE 100 MG/2 ML VIAL IVP SCH ×3 (06:11→20:43)
[2017-04-18 06:32] LABS: % IMMATURE GRANULYOCYTES 1.7 % (0.0-1.1); ADD DIFF? NO; ADD MORPH? NO; ADD SCAN? NO; ATYPICAL LYMPHOCYTE FLAG 0 (0-99); FRAGMENT RBC FLAG 0 (0-99); HEMATOCRIT 24.5 % (38.0-47.0); HEMOGLOBIN 8.2 g/dL (12.6-16.3); LEFT SHIFT FLG 10 (0-99); LIPEMIA HEMOLYSIS FLAG 80 (0-99); MEAN CELL HEMOGLOBIN 31.2 pg (27.9-34.1); MEAN CELL HEMOGLOBIN CONCENTR. 33.5 g/dL (32.4-36.7); MEAN CELL VOLUME 93.2 fL (81.5-99.8); MEAN PLATELET VOLUME 10.3 fL (8.7-11.7); PLATELET CLUMPS FLAG 10 (0-99); PLATELET COUNT 191 10^3/uL (150-400); RED BLOOD CELL COUNT 2.63 10^6/uL (4.18-5.33); RED CELL DISTRIBUTION WIDTH 15.9 % (11.5-15.2)
[2017-04-18 06:51] LABS: ALBUMIN 2.8 g/dL (3.5-5.0); ANION GAP 11 mEq/L (8-16); CALCIUM 7.4 mg/dL (8.5-10.4); CARBON DIOXIDE 23 mEq/l (22-31); CHLORIDE 110 mEq/L (97-110); CREATININE 2.5 mg/dL (0.6-1.0); GLOMERULAR FILTRATION RATE 20; GLUCOSE 175 mg/dL (70-100); MAGNESIUM 1.8 mg/dL (1.6-2.3); SODIUM 144 mEq/L (134-144)
[2017-04-18] MEDS ORDERED: MAGNESIUM SULF 1 GM/DEXTROSE 100 ML IV ONE (06:55)
[2017-04-18 07:04] LABS: IONIZED CALCIUM 1.03 MMOL/L (1.12-1.30)
[2017-04-18] MEDS ORDERED: CALCIUM GLUCONATE 50 ML IV ONE (07:12)
[2017-04-18] MEDS: INSULIN LISPRO 100 UNIT/ML SC SCH ×4 (07:20→20:41)
[2017-04-18] MEDS: PANTOPRAZOLE SODIUM 40 MG TAB PO SCH (08:03)
[2017-04-18] MEDS: morphINE SR 100 MG TAB PO SCH ×2 (08:03→20:43)
[2017-04-18] MEDS: GABAPENTIN 300 MG CAP PO SCH ×3 (08:03→20:43)
[2017-04-18] MEDS: DULoxetine 60 MG CAP PO SCH (08:03)
[2017-04-18] MEDS: ATORVASTATIN CALCIUM 20 MG TAB PO SCH (08:04)
--- NOTE | 2017-04-18 08:36 | SOAPPROG ---
SOAP Progress Note Assessment/Plan: Assessment:Plan: ARF on CRF-rapidly better -I wrote to stop IVF -continue electrolyte replacement prn -due to dehydration, meds, in solitary kidney -I discussed precautions with her -she needs to seek prompt medical attention for signs and symptoms of kidney stone or UTI -she should hold her diuretics and ROSIE-i for any severe or prolonged dehydrating illness ACK-solitary kidney -likely should have a f/u appointment in Nephrology to make sure ARF and electrolyte issues are stable post-discharge -reinforcement of precautions for care of solitary kidney -contact information given to patient 04/18/17 08:29 Subjective: stable overnite, tolerating PO Objective: Vital Signs Temp Pulse Resp BP Pulse Ox 36.9 C 80 20 130/57 H 94 04/18/17 08:00 04/18/17 08:00 04/18/17 08:00 04/18/17 08:00 04/18/17 08:00 Laboratory Results 04/18/17 06:05 04/18/17 06:05 04/17/17 04/18/17 04/19/17 05:59 05:59 05:59 Intake Total 4276 3396 Output Total 1340 575 Balance 2936 2821 Physical Exam - Physical Exam General Appearance: alert, no apparent distress EENT: normal ENT inspection Neck: normal inspection Respiratory: lungs clear, normal breath sounds, No respiratory distress Cardiac/Chest: regular rate, rhythm, No diastolic murmur, No systolic murmur Abdomen: normal bowel sounds Extremities: No swelling ICD10 Worksheet Patient Problems: Problems Problem Status Onset BONG (acute kidney injury) Acute Hypocalcemia Acute Seizure Acute
[2017-04-18] MEDS: BUDESONIDE/FORMOTEROL 160/4.5 60 PUFFS/MDI IH SCH ×2 (08:51→20:57)
--- NOTE | 2017-04-18 14:22 | HOSPPROG ---
Hospitalist Progress Note Assessment/Plan: New onset seizure likely secondary to electrolyte disturbances including hypocalcemia and hypomagnesemia - Neurology consult appreciated, no anti- epileptics recommended. -prn ativan for recurrent seizure -replace electrolytes, follow -head CT neg Hypocalcemia in setting of acute renal failure and hyperphosphatemia - likely cause of seizure. Improving with replacement. Low vit D may be contributing. -replace Vit D -cont calc, mag replacement BONG on CKD - Secondary to volume depletion in setting of crohn's flare, GI losses and poor oral intake. Baseline Cr 1.1, in setting of solitary functioning kidney. Has not required dialysis, Cr trending down with hydration. -IVF's d/c'd per renal -precautions discussed with renal regarding care of solitary kidney: hold diuretics and lian if at risk for volume depletion Hypotension - Due to hypovolemia as above, resolved. Off pressors. Crohn's flare - on IV hydrocortisone now, was on predisone taper as outpt, down to 40 mg daily. -wean hydrocortisone -likely change to oral prednisone tomorrow Addisons due to chronic steroid use - on stress dose steroids. -wean hydrocortisone as above Hyperglycemia - stress dose steroids likely contributing, weaning as above -cont SSI Chronic opiate and bzd dependence - high risk doses noted. -cont reduced morphine dose given poor renal function and likely accumulating , increasing her risk of respiratory suppression -if she does ok on the lower dose, could consider d/c'ing her on this for safety Peripheral neuropathy - will resume home gabapentin dose with improved renal function Full code DVT PPLX - IVETTE Dispo - cont inpt/ICU Objective: Vital Signs Temp Pulse Resp BP Pulse Ox 36.9 C 86 12 130/57 H 92 04/18/17 08:00 04/18/17 08:50 04/18/17 08:50 04/18/17 08:00 04/18/17 08:50 Laboratory Results 04/18/17 06:05 04/18/17 06:05 04/17/17 04/18/17 04/19/17 05:59 05:59 05:59 Intake Total 6280 8606 Output Total 1340 575 Balance 2935 7115 ICD10 Worksheet Patient Problems: Problems Problem Status Onset BONG (acute kidney injury) Acute Hypocalcemia Acute Seizure Acute
[2017-04-18] MEDS ORDERED: D10W 250 ML PRN HYPOGLYCEMIA IV (14:30)
[2017-04-18] MEDS: CHOLECALCIFEROL VIT D3 1,000 UNITS TAB PO SCH (14:45)
[2017-04-18] MEDS: MIRTAZAPINE 30 MG TAB PO SCH (20:43)
[2017-04-18] MEDS: AMITRIPTYLINE HCL 25 MG TAB PO SCH (20:43)
[2017-04-18] MEDS: BUDESONIDE 3 MG EC CAP PO SCH (20:43)
[2017-04-18] MEDS: LEVOTHYROXINE 100 MCG TAB PO SCH (20:43)
[2017-04-19 04:54] LABS: IONIZED CALCIUM 1.14 MMOL/L (1.12-1.30)
[2017-04-19 05:05] LABS: ABSOLUTE IMMATURE GRANULOCYTES 0.13 10^3/uL (0.00-0.10); ADD DIFF? NO; ADD MORPH? NO; ADD SCAN? NO; ATYPICAL LYMPHOCYTE FLAG 0 (0-99); FRAGMENT RBC FLAG 0 (0-99); HEMATOCRIT 23.5 % (38.0-47.0); HEMOGLOBIN 7.6 g/dL (12.6-16.3); LEFT SHIFT FLG 10 (0-99); LIPEMIA HEMOLYSIS FLAG 80 (0-99); MEAN CELL HEMOGLOBIN 30.8 pg (27.9-34.1); MEAN CELL HEMOGLOBIN CONCENTR. 32.3 g/dL (32.4-36.7); MEAN CELL VOLUME 95.1 fL (81.5-99.8); MEAN PLATELET VOLUME 10.3 fL (8.7-11.7); PLATELET CLUMPS FLAG 0 (0-99); PLATELET COUNT 170 10^3/uL (150-400); RED BLOOD CELL COUNT 2.47 10^6/uL (4.18-5.33); RED CELL DISTRIBUTION WIDTH 16.1 % (11.5-15.2)
[2017-04-19 05:27] LABS: ALBUMIN 2.7 g/dL (3.5-5.0); ANION GAP 9 mEq/L (8-16); CALCIUM 8.2 mg/dL (8.5-10.4); CARBON DIOXIDE 25 mEq/l (22-31); CHLORIDE 110 mEq/L (97-110); CREATININE 1.6 mg/dL (0.6-1.0); GLOMERULAR FILTRATION RATE 33; GLUCOSE 119 mg/dL (70-100); MAGNESIUM 1.8 mg/dL (1.6-2.3); POTASSIUM 4.2 mEq/L (3.5-5.2); SODIUM 144 mEq/L (134-144)
[2017-04-19] MEDS ORDERED: MAGNESIUM SULF 1 GM/DEXTROSE 100 ML IV ONE (07:33)
[2017-04-19] MEDS: CHOLECALCIFEROL VIT D3 1,000 UNITS TAB PO SCH (08:48)
[2017-04-19] MEDS: GABAPENTIN 300 MG CAP PO SCH ×3 (08:48→20:49)
[2017-04-19] MEDS: DULoxetine 60 MG CAP PO SCH (08:48)
[2017-04-19] MEDS: ATORVASTATIN CALCIUM 20 MG TAB PO SCH (08:49)
[2017-04-19] MEDS: HYDROCORTISONE 100 MG/2 ML VIAL IVP SCH (08:49)
[2017-04-19] MEDS: morphINE SR 100 MG TAB PO SCH ×2 (08:49→20:48)
[2017-04-19] MEDS: PANTOPRAZOLE SODIUM 40 MG TAB PO SCH (08:49)
[2017-04-19] MEDS: INSULIN LISPRO 100 UNIT/ML SC SCH ×4 (09:07→20:47)
[2017-04-19] MEDS: BUDESONIDE/FORMOTEROL 160/4.5 60 PUFFS/MDI IH SCH ×2 (09:47→21:35)
--- NOTE | 2017-04-19 10:15 | HOSPPROG ---
Hospitalist Progress Note Assessment/Plan: New onset seizure likely secondary to electrolyte disturbances including hypocalcemia and hypomagnesemia - Neurology consult appreciated, no anti- epileptics recommended. -prn ativan for recurrent seizure -replace electrolytes, follow -head CT neg Hypocalcemia in setting of acute renal failure and hyperphosphatemia - likely cause of seizure. Improving with replacement. Low vit D may be contributing. -replace Vit D -cont calc, mag replacement BONG on CKD - Cr 9 on arrival. Secondary to volume depletion in setting of crohn 's flare, GI losses, poor oral intake and ROSIE. Baseline Cr 1.1, in setting of solitary functioning kidney. Has not required dialysis, Cr trending down. -Off IVF's -precautions discussed with regarding care of solitary kidney: hold diuretics and rosie if at risk for volume depletion -cont to hold ROSIE, Spironolactone for now -outpt nephrology f/u Anemia - Normocytic. Hgb 10.2 --> 7.6 hgb continues to trend down despite being off IVF's >24 hrs. Could be some dilutional component, though given recent crohn's flare / diarrhea, consider GI losses. She cannot recall her last c-scope. -will work up further with iron studies, b12, folate -hemoccult stool -may warrant inpt GI evaluation if hgb continues to drop Hypotension - Due to hypovolemia as above, resolved. Off pressors. More hypertensive today. -resume Toprol, prn hydralazine Crohn's flare - required stress dose steroids on arrival, was on predisone taper as outpt, down to 40 mg daily. -wean IV hydrocortisone -resume oral prednisone taper at 40 mg daily. she was planning on 2 more weeks of taper -needs outpt GI f/u DM / Hyperglycemia - stress dose steroids likely contributing, weaning as above. bg's improving with steroid wean -cont SSI -holding metformin with BONG Chronic opiate and bzd dependence - high risk home doses noted: MS Contin 200 mg BID plus Oxy 30 mg q4 prn -on reduced morphine dose given poor renal function and likely accumulating, increasing her risk of respiratory suppression -if she does ok on the lower dose, could consider d/c'ing her on this for safety, she is ok with this plan Peripheral neuropathy - dose reduced with BONG, resume home dose at dc Full code DVT PPLX - IVETTE Dispo - cont inpt Subjective: Pt tired this am. She denies pain. No N/V/D. Denies melena or hematochezia. Objective: Vital Signs Temp Pulse Resp BP Pulse Ox 36.9 C 88 16 158/94 H 92 04/19/17 07:43 04/19/17 07:43 04/19/17 07:43 04/19/17 07:43 04/19/17 07:43 Laboratory Results 04/19/17 04:46 04/19/17 04:46 04/18/17 04/19/17 04/20/17 05:59 05:59 05:59 Intake Total 3396 1100 Output Total 575 Balance 2821 1100 - Physical Exam Constitutional: no apparent distress Eyes: PERRL Ears, Nose, Mouth, Throat: moist mucous membranes Cardiovascular: regular rate and rhythym Respiratory: no respiratory distress, clear to auscultation Gastrointestinal: normoactive bowel sounds, soft, non-tender abdomen Skin: warm Musculoskeletal: full muscle strength Neurologic: AAOx3 Psychiatric: interacting appropriately ICD10 Worksheet Patient Problems: Problems Problem Status Onset BONG (acute kidney injury) Acute Hypocalcemia Acute Seizure Acute
--- NOTE | 2017-04-19 10:16 | SOAPPROG ---
SOAP Progress Note Assessment/Plan: Assessment: 1. BONG. Due to volume depletion from Crohn's flare/ACEI use. Recovering nicely after IVF. Creat down to 1.6. B/l 1.1. Would keep off ACEI until eating/drinking/stable bowel sxs as outpatient. Left card. Should call for nephrology f/u in 4 wks or so. 2. HTN. BP now rebounding. Would suggest starting low dose amlodipine, 5mg per day for the time being as long as no prior allergies. Would keep off aldactone for now. 3. Anemia. Likely ACD/dilution/possibly GI bld loss from Crohn's, further eval per primary service. 4. Crohn's. On po budesonide. Needs GI f/u. Plan: 04/19/17 10:13 04/19/17 10:14 04/19/17 10:16 04/19/17 10:17 04/19/17 10:17 Subjective: Very anxious to go home. Objective: Vital Signs Temp Pulse Resp BP Pulse Ox 36.9 C 88 16 158/94 H 92 04/19/17 07:43 04/19/17 07:43 04/19/17 07:43 04/19/17 07:43 04/19/17 07:43 Laboratory Results 04/19/17 04:46 04/19/17 04:46 04/18/17 04/19/17 04/20/17 05:59 05:59 05:59 Intake Total 3396 1100 Output Total 575 Balance 2821 1100 Comfortable wf in bed, NAD RRR, no m/g/r CTAB Abdom soft, nt No edema ICD10 Worksheet Patient Problems: Problems Problem Status Onset BONG (acute kidney injury) Acute Hypocalcemia Acute Seizure Acute
[2017-04-19] MEDS: HEPARIN 5,000 UNIT/0.5 ML SYR SC SCH ×2 (13:53→20:48)
[2017-04-19] MEDS: predniSONE 20 MG TAB PO SCH (16:02)
[2017-04-19 16:50] LABS: % SATURATION 23 % (20-55); TOTAL IRON BINDING CAPACITY 275 ug/dL (260-490)
[2017-04-19 17:17] LABS: FERRITIN - BCH 42.4 ng/mL (6.2-264.0)
[2017-04-19 17:47] LABS: FOLATE SERUM 7.02 ng/mL (2.80 - >20.00)
[2017-04-19] MEDS ORDERED: hydrALAZINE 25 MG TAB PO PRN (18:23)
[2017-04-19] MEDS: METOPROLOL SUCCINATE XR 50 MG TAB PO SCH (18:29)
[2017-04-19] MEDS ORDERED: SIMETHICONE 80 MG TAB CHEW PO PRN (20:24)
[2017-04-19] MEDS: MIRTAZAPINE 30 MG TAB PO SCH (20:48)
[2017-04-19] MEDS: AMITRIPTYLINE HCL 25 MG TAB PO SCH (20:49)
[2017-04-19] MEDS: LEVOTHYROXINE 100 MCG TAB PO SCH (20:49)
[2017-04-19] MEDS: BUDESONIDE 3 MG EC CAP PO SCH (20:49)
[2017-04-20] MEDS: HEPARIN 5,000 UNIT/0.5 ML SYR SC SCH ×2 (05:04→16:14)
[2017-04-20 05:14] LABS: IONIZED CALCIUM 1.19 MMOL/L (1.12-1.30)
[2017-04-20 05:15] LABS: ADD DIFF? YES; ADD MORPH? NO; ADD SCAN? NO; ATYPICAL LYMPHOCYTE FLAG 0 (0-99); FRAGMENT RBC FLAG 0 (0-99); HEMATOCRIT 23.7 % (38.0-47.0); HEMOGLOBIN 7.8 g/dL (12.6-16.3); LEFT SHIFT FLG 20 (0-99); LIPEMIA HEMOLYSIS FLAG 80 (0-99); MEAN CELL HEMOGLOBIN 31.5 pg (27.9-34.1); MEAN CELL HEMOGLOBIN CONCENTR. 32.9 g/dL (32.4-36.7); MEAN CELL VOLUME 95.6 fL (81.5-99.8); PLATELET CLUMPS FLAG 0 (0-99); PLATELET COUNT 168 10^3/uL (150-400); RED BLOOD CELL COUNT 2.48 10^6/uL (4.18-5.33); RED CELL DISTRIBUTION WIDTH 16.5 % (11.5-15.2)
[2017-04-20 05:38] LABS: ANION GAP 9 mEq/L (8-16); CALCIUM 8.5 mg/dL (8.5-10.4); CARBON DIOXIDE 26 mEq/l (22-31); CHLORIDE 108 mEq/L (97-110); CREATININE 1.5 mg/dL (0.6-1.0); GLOMERULAR FILTRATION RATE 36; GLUCOSE 137 mg/dL (70-100); MAGNESIUM 1.7 mg/dL (1.6-2.3); POTASSIUM 4.4 mEq/L (3.5-5.2); SODIUM 143 mEq/L (134-144)
[2017-04-20 06:02] LABS: PLATELET ESTIMATE ADEQUATE (ADEQ)
[2017-04-20] MEDS ORDERED: MAGNESIUM SULF 1 GM/DEXTROSE 100 ML IV ONE (08:25)
[2017-04-20] MEDS ORDERED: amLODIPine BESYLATE 5 MG TAB PO SCH (09:00)
[2017-04-20] MEDS: DULoxetine 60 MG CAP PO SCH (09:04)
[2017-04-20] MEDS: ATORVASTATIN CALCIUM 20 MG TAB PO SCH (09:04)
[2017-04-20] MEDS: GABAPENTIN 300 MG CAP PO SCH (09:04)
[2017-04-20] MEDS: predniSONE 20 MG TAB PO SCH (09:04)
[2017-04-20] MEDS: CHOLECALCIFEROL VIT D3 1,000 UNITS TAB PO SCH (09:05)
[2017-04-20] MEDS: morphINE SR 100 MG TAB PO SCH (09:05)
[2017-04-20] MEDS: METOPROLOL SUCCINATE XR 50 MG TAB PO SCH (09:05)
[2017-04-20] MEDS: PANTOPRAZOLE SODIUM 40 MG TAB PO SCH (09:05)
[2017-04-20] MEDS: INSULIN LISPRO 100 UNIT/ML SC SCH ×2 (09:11→13:01)
[2017-04-20] MEDS: BUDESONIDE/FORMOTEROL 160/4.5 60 PUFFS/MDI IH SCH (09:30)
--- NOTE | 2017-04-20 09:39 | SOAPPROG ---
SOAP Progress Note Assessment/Plan: Assessment:Plan: ARF on CRF-rapidly better -Creatinine down to 1.5 today -due to dehydration, meds, in solitary kidney -I discussed precautions with her -she needs to seek prompt medical attention for signs and symptoms of kidney stone or UTI -she should hold her diuretics and ROSIE-i for any severe or prolonged dehydrating illness if she is on those in the future CKD-solitary kidney -baseline function about 1.1 -should have a f/u appointment in Nephrology to make sure ARF and electrolyte issues are stable post-discharge -reinforcement of precautions for care of solitary kidney -contact information given to patient -labs in two weeks -f/u in Nephrology in two weeks HTN-metoprolol started yesterday -I ordered amlodipine today -I would keep her on this combination until seen in Nephrology clinic -she may want to avoid ROSIE-i in the future -although this would help decrease the hyperfiltration that occurs in a solitary kidney, given her Ulcerative colitis, she is more prone to dehydrating illness and may not tolerate the effects of ROSIE-inhibition on renal blood flow, especially given her solitary kidney -this can be decided as an outpatient depending on how she does with her BP control 04/20/17 09:35 Subjective: stable overnite Objective: Vital Signs Temp Pulse Resp BP Pulse Ox 37.1 C 74 14 152/82 H 90 L 04/20/17 08:00 04/20/17 09:05 04/20/17 08:00 04/20/17 09:05 04/20/17 08:00 Laboratory Results 04/20/17 05:00 04/20/17 05:00 04/19/17 04/20/17 04/21/17 05:59 05:59 05:59 Intake Total 1100 500 Output Total 400 Balance 1100 100 Physical Exam - Physical Exam General Appearance: WD/WN, alert, no apparent distress EENT: normal ENT inspection Neck: normal inspection Respiratory: decreased breath sounds Abdomen: normal bowel sounds, non-tender, soft, No organomegaly Extremities: swelling (0-tr) ICD10 Worksheet Patient Problems: Problems Problem Status Onset BONG (acute kidney injury) Acute Hypocalcemia Acute Seizure Acute
[2017-04-20 12:45] VITALS: BP 152/92; PULSE 78; RESP 18; TEMP 98.8; O2SAT 91
[2017-04-20] MEDS ORDERED: CYANO/VITAMIN B12 1000 MCG/ML VIAL IM ONE (13:26)
--- NOTE | 2017-04-20 13:55 | PDDCSUM ---
Discharge Summary Discharge Summary: DISCHARGE DIAGNOSES: - seizure, 1st episode, triggered by severe electrolyte abnormalities and renal failure -Acute renal failure, hemodynamic -Severe hypocalcemia, hyperphosphatemia -Dehydration -Uncontrolled Crohn's disease symptoms -Uncontrolled type 2 diabetes- mellitus -Normocytic anemia, multifactorial -Vitamin-B12 deficiency, acute on chronic CONSULTANTS: Dr. Osmani May PROCEDURES: CT scan of head Abdominal ultrasound PICC line placement HOSPITAL COURSE SUMMARY: This patient who has had ongoing Crohn's disease symptoms as well as poorly controlled diabetes developed severe dehydration, acute renal failure and profound electrolyte abnormalities with particularly hypo calcium and hyperphosphatemia. She ended up having a seizure at home which finally prompted her presentation to the emergency room. Her creatinine was at 9 issue arrived here. She was treated with good with aggressive hydration, along with correction of her electrolytes. In addition her lisinopril is discontinued at this time, and her diuretics were held here. She was started on amlodipine for her blood pressure and renal protection. A CT scan of the head was unrevealing. She was felt not to have epilepsy but to have a seizure induced by her electrolyte abnormalities and other metabolic and other hydration issues. Over time she recovered nicely with correction of her creatinine back to 1.5, very near her baseline, and correction of her electrolytes. There were no recurrent seizures. At this point she is felt stable to discharge home. I had long discussion with the patient and her daughter about need to control her Crohn's disease and her diabetes. She will see her primary care doctor about her diabetes control and to recheck her renal function within the next week. I am waiting for call back from Dr. Bill amezcua office in Gastroenterology to help get her set up for gastroenterology follow-up. Not only does she have uncontrolled Crohn's symptoms at this time but she is overdue for a repeat colonoscopy for surveillance. in addition it was identified that the patient has markedly vitamin B12 deficiency here. She has chronic vitamin B12 deficiency and had previously been getting monthly B12 shots her primary care office but these had been stopped a while back for reasons that are unclear to me. We did give her a vitamin B12 injection here and I have prescribed oral vitamin B12 replacements but of recommended that she continue close follow-up with her primary care physician for this with ongoing B12 replacement either orally or by injection. PENDING TEST RESULTS: None MEDICATION CHANGES: Discontinuation of lisinopril Addition of amlodipine Addition of vitamin B12 oral supplementation with plans to follow up with primary care in either continue oral and/or injected replacement Prednisone 20 mg prescribed for Crohn's symptoms, with plan to follow up with Dr. Stephens for definitive ongoing care of her Crohn's FOLLOW-UP PLAN: With Dr. Jessica Vaz within [address] Neville Stephens within 1-2 weeks Greater than 35 minutes bedside and care coordination time today
--- NOTE | 2017-04-20 14:29 | PDIAF ---
- Diagnosis Diagnosis: dehydration, renal failure, crohns disease, B12 deficient Code Status: Full Code - Medication Management Discharge Medications: Medications to Continue on Transfer Morphine Sulfate [Morphine Sulfate ER] 200 mg PO BID 05/07/12 [Last Taken ] Metoprolol Succinate Xr [Toprol Xl 50 mg (*)] 50 mg PO DAILY 02/27/14 [Last Taken Unknown] [place]-3 Ethyl Est-Lovaza [Lovaza 1 gm (*)] 2 gm PO BID 02/27/14 [Last Taken Unknown] Amitriptyline HCl 75 mg PO HS 12/05/16 [Last Taken Unknown] Atorvastatin Calcium [Lipitor 20 mg (*)] 20 mg PO DAILY 12/05/16 [Last Taken Unknown] Budesonide/Formoterol 160/4.5 [Symbicort 160-4.5 Mcg Inh (*)] 1 puffs IH BID [Last Taken Unknown] Furosemide [Lasix 40 MG (*)] 40 mg PO DAILY 12/05/16 [Last Taken Unknown] Levothyroxine [Synthroid 100 mcg (*)] 100 mcg PO DAILY06 12/05/16 [Last Taken Unknown] Mirtazapine 30 mg PO HS 12/05/16 [Last Taken Unknown] ALPRAZolam [Xanax 0.5 MG (*)] 0.5 mg PO BID PRN 04/16/17 [Last Taken Unknown] Albuterol [Proventil Inhaler HFA (*)] 1 - 2 puffs IH PRN PRN 04/16/17 [Last Taken Unknown] Budesonide [Entocort EC] 9 mg PO HS 04/16/17 [Last Taken Unknown] DULoxetine [Cymbalta 60 MG (*)] 60 mg PO DAILY 04/16/17 [Last Taken Unknown] Gabapentin [Neurontin] 600 mg PO TID 04/16/17 [Last Taken Unknown] Pantoprazole Sodium [Protonix 40mg (*)] 40 mg PO DAILY 04/16/17 [Last Taken Unknown] Promethazine HCl [Phenergan 25mg (*)] 25 mg PO Q6 PRN 04/16/17 [Last Taken Unknown] metFORMIN HCL [Glucophage 500 mg (*)] 1,000 mg PO HS 04/16/17 [Last Taken Unknown] oxyCODONE IR [Oxycodone Ir (*)] 30 mg PO Q4 PRN 04/16/17 [Last Taken Unknown] predniSONE [predniSONE TAPER] 1 each PO AD 04/16/17 [Last Taken Unknown] Cyanocobalamin (Vitamin B-12) [Vitamin B-12] 1,000 mcg PO DAILY #30 lozenge [Last Taken Unknown] amLODIPine BESYLATE [Norvasc 5 mg (*)] 5 mg PO DAILY #30 tab 04/20/17 [Last Taken Unknown] predniSONE 20 mg PO DAILY #30 tablet 04/20/17 [Last Taken Unknown] Discharge Medications: Refer to the Discharge Home Medication list for PRN reason. - Orders Services needed: Home Care, Registered Nurse Home Care Face to Face: I certify that this patient was under my care and that I had the required [id number] encounter meeting the encounter requirements on the discharge day. My findings support the fact that the patient is homebound as defined in CMS Chapter 7 Medicare Benefits Manual 30.1.1, The condition of the patient is such that there exists a normal inability to leave home and consequently, leaving home would require a considerable and taxing effort. Diet Recommendation: ADA 1800 consistent carb Diet Texture: Regular Texture Diet - Follow Up Care Current Providers and Referrals: Jessica Vaz MD [Primary Care Provider] - As per Instructions
== END 2017-04-20 15:44 | disposition home health service (06) | DRG 683 ==
LOC: EDUNIT# → F2N 17:55 → F3N 04-18 15:15
PROVIDERS: ADMIT Family Medicine; ATTEND Family Medicine
PROC: 02H633Z Insertion of Infusion Device into Right Atrium, Percutaneous Approach (ICD-10-PCS; principal; 2017-04-16)
DX: N17.8 Other acute kidney failure (principal); R56.9 Unspecified convulsions; I95.9 Hypotension, unspecified; K50.90 Crohn's disease, unspecified, without complications; E83.51 Hypocalcemia; Q60.0 Renal agenesis, unilateral; I12.9 Hypertensive chronic kidney disease with stage 1 through stage 4 chronic kidney disease, or unspecified chronic kidney disease; F11.20 Opioid dependence, uncomplicated; N18.3 Chronic kidney disease, stage 3 (moderate); E86.0 Dehydration; E83.42 Hypomagnesemia; E55.9 Vitamin D deficiency, unspecified; E11.9 Type 2 diabetes mellitus without complications
CPT/HCPCS: 82607-90; 82947-QW; C1769; J0610; J1815; J1956; J2060; J2997; J3475